=== PATIENT | female | born 1995 | race Caucasian/White ===

== ENCOUNTER → 2016-12-23 | Outpatient (CLI) | payer BC | LOC: MOB LAB 14:28 | PROVIDERS: ATTEND Nurse Practitioner Family | DX: N89.8 Other specified noninflammatory disorders of vagina (principal) | CPT/HCPCS: 87480; 87510; 87660 ==

== ENCOUNTER → 2017-03-03 | Outpatient (CLI) | payer BC ==
--- NOTE | 2017-03-03 15:20 | DI ---
History: Second trimester ultrasound examination of the uterus. Gestational age by last mens trual period is 13 weeks 5 days. Comparison: None Findings: There is a single live intrauterine fetus with heart rate of 150 beats per minute. presentation is transverse There is an anterior placenta. Amniotic fluid volume is normal the largest pocket measuring 2.6 cm. Gestational age by BPD is 14 weeks 3 days, by HC 14 weeks 5 days, by a.c. 14 weeks one day, and by fe moral length 13 weeks 6 days. Composite gestational age is 14 weeks 2 days. Average ultrasound age is 14 weeks 2 days NATALIO based on sonographic measurements is August 30, 2017 Estimated weight is 86 g, or 3 ounces Impression Single live intrauterine fetus with a an average ultrasound age of 14 weeks 2 days, estimated w eight of 86 g, and an estimated NATALIO of August 30, 2017
== END ==
LOC: US 10:10
PROVIDERS: ATTEND Obstetrics & Gynecology
DX: Z36 Encounter for antenatal screening of mother (principal)
CPT/HCPCS: 76801

== ENCOUNTER → 2017-03-03 | Outpatient (CLI) | payer BC | LOC: MOB LAB 09:59 | PROVIDERS: ATTEND Obstetrics & Gynecology | DX: Z36 Encounter for antenatal screening of mother (principal) | CPT/HCPCS: 87491; 87591 ==

== ENCOUNTER 2017-08-23 15:48 | Inpatient (IN) ==
[2017-08-23] MEDS ORDERED: BUTORPHANOL TARTRATE 2 MG/1 ML VIAL IVP PRN (16:12)
[2017-08-23] MEDS ORDERED: CefOXitin Inj 2 GM in Sodium Chloride 0.9% 100 ML IV PRN (16:12)
[2017-08-23] MEDS ORDERED: Phenylephrine Inj 50 MCG in Normal Saline Flush 0.5 ML IVP PRN (16:12)
[2017-08-23] MEDS ORDERED: MISOPROSTOL 200 MCG TABLET RECTAL PRN (16:12)
[2017-08-23] MEDS ORDERED: diphenhydrAMINE 50 MG/1 ML VIAL IVP PRN (16:12)
[2017-08-23] MEDS ORDERED: ONDANSETRON 4 MG/2 ML VIAL IVP PRN (16:12)
[2017-08-23] MEDS ORDERED: TERBUTALINE SULFATE 1 MG/1 ML SDV SUBCUT PRN (16:12)
[2017-08-23] MEDS ORDERED: ePHEDrine Inj 5 MG in Normal Saline Flush 1 ML IVP PRN (16:12)
[2017-08-23] MEDS ORDERED: NORMAL SALINE 10 ML SYRINGE FLUSH IVP PRN (16:12)
[2017-08-23] MEDS ORDERED: Lidocaine 1% 10 MG/ML - 20 ML VIAL SUBCUT PRN (16:12)
[2017-08-23] MEDS ORDERED: Naloxone Inj 0.01 MG in Normal Saline Flush 1 ML IVP PRN (16:12)
[2017-08-23] MEDS ORDERED: METHYLERGONOVINE MALEATE 0.2 MG/1 ML VIAL IM PRN (16:12)
[2017-08-23] MEDS ORDERED: CITRIC ACID/SODIUM CITRATE 30 ML CUP PO PRN (16:12)
[2017-08-23] MEDS ORDERED: Nalbuphine Inj 20 MG/ML Ampule IVP PRN (16:12)
[2017-08-23] MEDS ORDERED: LIDOCAINE W/ SODIUM BICARB 0.5 ML SYR SUBD PRN (16:12)
[2017-08-23] MEDS ORDERED: fentaNYL Inj 100 MCG/2 ML VIAL IV PRN (16:12)
[2017-08-23] MEDS ORDERED: OXYTOCIN 10 UNIT/1 ML IM PRN (16:12)
[2017-08-23] MEDS ORDERED: Famotidine Inj 20 MG in Normal Saline Flush 10 ML IVP PRN ×4 (16:12)
[2017-08-23] MEDS ORDERED: NALOXONE 0.4 MG/1 ML VIAL IVP PRN (16:12)
[2017-08-23] MEDS ORDERED: Carboprost Inj 250 MCG/ML AMP IM PRN (16:12)
[2017-08-23] MEDS ORDERED: Metoclopramide Inj 10 MG/2 ML VIAL IV PRN (16:12)
[2017-08-23] MEDS ORDERED: LIDOCAINE HCL 2 % 10 ML JELLY URO-JECT TOPICAL PRN (16:12)
[2017-08-23] MEDS ORDERED: CALCIUM CARBONATE 500 MG (TUMS) CHEWABLE TABLET PO PRN (16:12)
[2017-08-23] MEDS ORDERED: Oxytocin 20 Units + LR 20 UNIT/1,000 ML BAG IV SCH (16:15)
[2017-08-23] MEDS: Lactated Ringers-OB Dept 1,000 ML PRIMARY IV SCH (16:25)
--- NOTE | 2017-08-23 16:25 | OB.PROGRES ---
Interval History: The patient is a 22-year-old at 39 weeks gestation today who was admitted for induction of labor secondary to unstable lie. The baby has been breech or transverse 2 different times in the past several weeks. Last week she went to labor and delivery for external cephalic version but was found to be head down. The patient still believes that the baby's head down currently. She has been doing pelvic tilts. The other issue this is that she was found to be GBS positive. Past medical history benign, no history of HSV. Past surgical history none Allergies to morphine No tobacco, no alcohol, no drugs in . OB history the vaginal delivery of a 6 lbs. 9 oz. girl about 4 years ago. Small vaginal laceration. Objective - Cervical Exam Cervical Exam: 2/50/-2 cephalic. Cervix is mid position and not as posterior as it was earlier last week. Cervix is soft. Membranes were not swept since patient had not received IV antibiotics yet. is GBS positive. Heart Rate Interpretation Category: Category I - Additional Details Additional Details: Limited transabdominal ultrasound shows the fetus to be in the cephalic presentation with the baby's back to the patient's right side. Assessment and Plan - Assessment / Plan Additional Assessment/Plan Details: Assessment: IUP 39 week gestation Unstable lie Group B strep positive Plan: Admit IV penicillin 5 million units initially then 2.5 million units every 4 hours Cervical ripening with Cytotec unless patient is marco and then Pitocin augmentation for cervical ripening Continue care. Close observation.
[2017-08-23 16:33] LABS: Hematocrit [HCT] 32.1 % (37.0-47.0); Hemoglobin [HGB] 10.8 g/dL (12.0-16.0); MEAN CORPUSCULAR HEMOGLOBIN 27.3 PG (27-31); MEAN CORPUSCULAR HGB CONC 33.6 g/dL (33-37); MEAN CORPUSCULAR VOLUME 81.3 FL (81-99); MEAN PLATELET VOLUME 10.1 FL (7.4-12.2); RED BLOOD COUNT 3.95 10^6/uL (4.20-5.40)
[2017-08-23] MEDS ORDERED: Misoprostol Tab 100 MCG TAB VAGINAL PRN (20:51)
[2017-08-23] MEDS ORDERED: Misoprostol Tab 100 MCG TAB ONE (20:56)
--- NOTE | 2017-08-23 22:13 | OB.PROGRES ---
Interval History: Patient received her Cytotec around 2100 hrs. She has felt some cramping. Currently, she has to void. Objective - Cervical Exam Cervical Exam: Deferred currently [place]: Irregular contractions Heart Rate Interpretation Category: Category I - Labs CBC and BMP: 08/23/17 16:12 - Vital Signs Last Taken Vital Signs: Vital Signs - Last Taken Temperature 98.4 F 08/23/17 22:05 Pulse Rate 88 08/23/17 21:00 Respiratory Rate 14 08/23/17 22:05 Blood Pressure 115/74 08/23/17 16:31 Pulse Ox 100 08/23/17 22:06 Assessment and Plan - Assessment / Plan Additional Assessment/Plan Details: Assessment: IUP 39 weeks gestation with unstable lie currently cephalic GBS positive Patient received 1 dose of Cytotec and has received 2 doses of IV penicillin Of note, in the patient's past surgical history 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 I did not mention that in my history. I will alert pediatrics to this. Plan: Continue to observe closely Penicillin IV every 4 hours If contractions completely resolved by 0 300 then I would have the nurse place another Cytotec at that time. If the contractions are continuing then most likely around 0 500 to 0600 hrs. I would augment with Pitocin unless the patient is in active labor with active cervical change. The patient and I discussed this plan and she agrees.
[2017-08-23] MEDS ORDERED: PENICILLIN G POTASSIUM 5,000,000 UNIT SDV IV ONE (23:48)
[2017-08-24] MEDS: Lactated Ringers-OB Dept 1,000 ML PRIMARY IV SCH ×5 (00:03→19:19)
--- NOTE | 2017-08-24 07:39 | OB.PROGRES ---
Interval History: The patient states that she can feel the contractions with the Pitocin that was just started. She would like an epidural at some time. Objective - Cervical Exam Cervical Exam: 3/50/-2 and cephalic and ballotable. Membranes swept gently since patient has received several doses of IV penicillin for GBS positive [place]: Contractions every 2-4. Pitocin will be increased from 1 milliunit to 2- 3 milliunits Heart Rate Interpretation Category: Category I - Labs CBC and BMP: 08/23/17 16:12 - Vital Signs Last Taken Vital Signs: Vital Signs - Last Taken Temperature 98.3 F 08/24/17 07:00 Pulse Rate 87 08/24/17 07:00 Respiratory Rate 18 08/24/17 07:00 Blood Pressure 112/70 08/24/17 07:00 Pulse Ox 98 08/24/17 07:00 Assessment and Plan - Assessment / Plan Additional Assessment/Plan Details: Assessment: IUP 39-07/26 week with some cervical change with Cytotec. GBS positive and patient has received several doses of IV penicillin The patient was started on 1 milliunit of Pitocin and she is having some discomfort with contractions. Plan: I will speak with anesthesia about an epidural to determine their schedule for this morning Continue to increase Pitocin Look for cervical ripening. Consider IV fentanyl for pain initially if the patient would like to try this.
[2017-08-24 09:49] LABS: AMPHETAMINE SCREEN NEGATIVE (NEG); CANNABINOID SCREEN,URINE NEGATIVE (NEG); COCAINE SCREEN NEGATIVE (NEG); METHADONE URINE SCREEN NEGATIVE (NEG); METHAMPHETAMINES SCREEN,URINE NEGATIVE (NEG); OPIATE SCREEN,URINE NEGATIVE (NEG); URINE SAMPLE TYPE VOIDED SPECIMEN; URINE SPECIFIC GRAVITY - MAN 1.015
[2017-08-24] MEDS ORDERED: Fent/Bupiv 2mcg/0.0625% Epid 250 ML ONE (11:14)
--- NOTE | 2017-08-24 11:44 | CRNA.PROCE ---
Central Neuraxis Block Placemt - - Type of Block: Epidural Reason for Block: Analgesia Moniters Used During Block: SPO2, NIBP Positioning: Sitting Skin Prep Used: ChloroPrep Draped: Yes Skin Infiltration - Enter Amount Used in Comment Field: 1% Xylocaine (mL): Yes ( skin wheal) Spinal Needle Used: 18 Hustead 80 mm Local Anesthetic - Enter Amount Used in Comment Field: 1.5 % Xylocaine with Epinephrine 1:200,000 (mL): Yes (5ml) Number of Centimeters Catheter Threaded: 4 Anesthesia Time - Other Weight: 94.801 kg Height: 5 ft 7 in Body Mass Index (BMI): 32.7
[2017-08-24] MEDS ORDERED: fentaNYL 2 MCG/BUPIVACAINE 0.0625%/NS 0.9% 250 ML BAG EPIDURAL SCH (11:45)
--- NOTE | 2017-08-24 11:46 | CRNA.PROGR ---
Anesthesia Time - - Start date: 08/24/17 - Procedure/Recovery Time Anesthesia : Time In: 11:22 - Other Weight: 94.801 kg Height: 5 ft 7 in Body Mass Index (BMI): 32.7 Physical Status: P2 Obstetrics: Planned vaginal delivery w/ neuraxial labor anesthesia/analog
--- NOTE | 2017-08-24 13:50 | OB.PROGRES ---
Interval History: The patient is comfortable after she received her epidural. The patient can feel pressure with contractions but no pain. She does not have pelvic pressure currently. Objective - Cervical Exam Cervical Exam: 4-5/60/-2 cephalic. However, I did palpate fingers which were below the head with the exam initially. Membranes are intact. I gently tried to manipulate the fingers to move the fingers and hand more caudal. [place]: Contractions every 2-3 minutes on 6 milliunits of Pitocin Heart Rate Interpretation Category: Category I - Labs CBC and BMP: 08/23/17 16:12 - Vital Signs Last Taken Vital Signs: Vital Signs - Last Taken Temperature 98.3 F 08/24/17 07:00 Pulse Rate 98 08/24/17 12:00 Respiratory Rate 22 08/24/17 12:00 Blood Pressure 133/62 08/24/17 12:00 Pulse Ox 100 08/24/17 12:00 Assessment and Plan - Assessment / Plan Additional Assessment/Plan Details: Assessment: IUP 39-1/7 week with an induction of labor for unstable lie for intermittent breach presentation. Currently, baby is in the cephalic presentation but the hand or hands could be palpated on this exam which is new. With gentle manipulation, I tried to move the hands out-of-the- way but was unsuccessful. Group B strep positive Plan: I will have the patient sit in a high Fowlers presentation. I will recheck the patient in an hour. If I can AROM the patient with the fingers and hand out of the way, perhaps the head will descend into the canal. Continue IV penicillin Continue IV Pitocin 6 milliunits. This will not be increased currently. If there is SROM, the nurse will check immediately to determine presenting parts. Nurse expressed understanding. Patient expressed understanding. We did briefly discuss section and the risks, benefits, alternatives and indication if there is a malpresentation.
--- NOTE | 2017-08-24 16:11 | OB.PROGRES ---
Interval History: The patient is comfortable. I went to the patient's room an hour after the last note with the patient was sleeping soundly. The patient feels better now that she got a nap in. Objective - Cervical Exam Cervical Exam: 5-6/60/-2. Cephalic presentation. I could not palpate a compound presentation i.e. the baby's hand Heart Rate Interpretation Category: Category I - Labs CBC and BMP: 08/23/17 16:12 - Vital Signs Last Taken Vital Signs: Vital Signs - Last Taken Temperature 98.0 F 08/24/17 14:00 Pulse Rate 110 H 08/24/17 14:00 Respiratory Rate 20 08/24/17 14:00 Blood Pressure 110/64 08/24/17 14:00 Pulse Ox 100 08/24/17 14:00 Assessment and Plan - Assessment / Plan Additional Assessment/Plan Details: Assessment: IUP 39 and one sevenths week with induction of labor for unstable lie. Previous compound presentation palpated but not currently. However, I could not perform AROM secondary to another patient in labor and delivery in the second stage of labor. Plan: After the other patient delivers, I will have the OR crew available and I will check the patient. If I cannot palpate a compound presentation, AROM will be completed. Patient expressed understanding that there is a possibility of a section for prolapsed cord or a prolapsed arm. Currently, continue Pitocin at 6 milliunits.
--- NOTE | 2017-08-24 17:00 | OB.PROGRES ---
Interval History: The patient was fairly comfortable. Anesthesia adjusted her epidural somewhat. The patient was ready for AROM. The patient stated that she understood the possibility, although low, of a prolapsed cord or prolapsed arm with AROM and the necessity to have a . Objective - Cervical Exam Cervical Exam: 560/-2. A compound presentation was not palpated. AROM with amniotomy hook was completed with the operating room staff standing by. Copious amounts of clear fluid. No palpated prolapsed cord or compound presentation. Copious amounts of clear fluid continued. [place]: the Pitocin was decreased from 6 milliunits to 3 milliunits after AROM. Heart Rate: There were some variable decelerations and decelerations to the low 100s after AROM. There is also a good acceleration with AROM. Heart Rate Interpretation Category: Category II - Labs CBC and BMP: 08/23/17 16:12 - Vital Signs Last Taken Vital Signs: Vital Signs - Last Taken Temperature 98.0 F 08/24/17 14:00 Pulse Rate 110 H 08/24/17 14:00 Respiratory Rate 20 08/24/17 14:00 Blood Pressure 110/64 08/24/17 14:00 Pulse Ox 100 08/24/17 14:00 Assessment and Plan - Assessment / Plan Additional Assessment/Plan Details: Assessment: IUP 39-1/7 week with AROM with clear fluid. Cephalic presentation. Cervix was still 5 cm dilated and 60% effaced. -2 to - 1 station. Plan: Observe closely the heart rate for decelerations. I did discuss with the patient that it is still possible to have a compound presentation and the second stage of labor. Continue penicillin for GBS
--- NOTE | 2017-08-24 17:19 | OB.PROGRES ---
Interval History: The patient was feeling some pressure and pain. She also thought she felt something moving in her pelvis. Objective - Cervical Exam Cervical Exam: 5-6/75/-1 station. The patient's cervix is very soft and also with stretches well. Compound presentation was not palpated. Heart Rate Interpretation Category: Category II (Occasional variable deceleration. Positive acceleration with scalp stimulation) - Labs CBC and BMP: 08/23/17 16:12 - Vital Signs Last Taken Vital Signs: Vital Signs - Last Taken Temperature 98.0 F 08/24/17 14:00 Pulse Rate 110 H 08/24/17 14:00 Respiratory Rate 20 08/24/17 14:00 Blood Pressure 110/64 08/24/17 14:00 Pulse Ox 100 08/24/17 14:00 Assessment and Plan - Assessment / Plan Additional Assessment/Plan Details: Assessment: IUP 39 and one sevenths weeks with some cervical change and some descent of the baby's head. Patient has some pain and discomfort with her epidural in place. Plan: Anesthesia will attempt to dose the epidural to determine if this helps her discomfort. Continue to observe closely.
--- NOTE | 2017-08-24 19:10 | OB.DEL.SUM ---
Delivery Note Delivery Summary: Pt is a 22 yo G2 now P2 at 39 1/7 weeks who was brought in by her primary MD, Dr. Harper, for cervical ripening secondary to unstable lie. She was GBS+ and received multiple dose of penicillin. She received 1 dose of cytotec last noc and then pitocin this morning. An epidural was placed for pain control. She underwent amniotomy at 1647 with a copious amount of amniotic fluid. She progressed to c/c/+2 over an hour and a half and had a strong urge to push. Dr. Harper was called to the facility at 1833. In the time that it took him to return to the hospital, the pt began involuntarily pushing. I was in house and was asked to attend the delivery. She delivered a viable female over an intact perineum at 1846. The baby's nose and mouth were suctioned with a bulb suction and the cord was doubly clamped by myself and cut by a friend of the pt. Baby was placed on mom's chest. Cord blood and cord gases were obtained. The placenta delivered spontaneously and intact, with a 3 vessel cord, at 1849. 20 mU of pitocin were infused with good hemostasis. The vagina and perineum were examined and no lacerations were noted. EBL 200 cc. Apgars were 9 at 1 minute and 10 at 5 minutes. Terminal meconium was noted. Baby's weight is pending at this time. Dr. Harper will care for the pt in the period.
[2017-08-24] MEDS ORDERED: Oxytocin 20 Units + LR 20 UNIT/1,000 ML BAG IV SCH (19:35)
[2017-08-24] MEDS ORDERED: diphenhydrAMINE 50 MG/1 ML VIAL IVP PRN (19:35)
[2017-08-24] MEDS ORDERED: ONDANSETRON 4 MG/2 ML VIAL IVP PRN (19:35)
[2017-08-24] MEDS ORDERED: BENZOCAINE/MENTHOL SPRAY 56 GM BOTTLE TOPICAL PRN (19:35)
[2017-08-24] MEDS ORDERED: NORMAL SALINE 10 ML SYRINGE FLUSH IVP PRN (19:35)
[2017-08-24] MEDS ORDERED: LANOLIN HPA 40 GM TUBE TOPICAL PRN (19:35)
[2017-08-24] MEDS ORDERED: diphenhydrAMINE 25 MG CAPSULE PO PRN (19:35)
[2017-08-24] MEDS ORDERED: DIPH,PERTUSS,TET(ADACEL) VAC/PF 0.5 ML (Tdap) IM ONE (19:35)
[2017-08-24] MEDS ORDERED: Nalbuphine Inj 20 MG/ML Ampule IVP PRN (19:35)
[2017-08-24] MEDS ORDERED: GLYCERIN/WITCH HAZEL 1 BOX TOPICAL PRN (19:35)
[2017-08-24] MEDS ORDERED: Ondansetron ODT Tab 4 MG TAB PO PRN (19:35)
[2017-08-24] MEDS ORDERED: CALCIUM CARBONATE 500 MG (TUMS) CHEWABLE TABLET PO PRN (19:35)
[2017-08-24] MEDS ORDERED: LIDOCAINE HCL 2 % 10 ML JELLY URO-JECT TOPICAL PRN (19:35)
[2017-08-24] MEDS ORDERED: ACETAMINOPHEN 325 MG TABLET PO PRN (19:35)
[2017-08-24] MEDS ORDERED: HYDROcodone-APAP 5 MG -325 MG TABLET PO PRN (19:35)
[2017-08-24] MEDS: DOCUSATE 100 MG CAPSULE PO SCH (21:38)
[2017-08-24] MEDS: IBUPROFEN 800 MG TABLET PO PRN (21:39)
[2017-08-25] MEDS: IBUPROFEN 800 MG TABLET PO PRN ×2 (05:22→19:08)
[2017-08-25 05:34] VITALS: RESP 16
[2017-08-25 08:13] LABS: Hemoglobin [HGB] 9.4 g/dL (12.0-16.0); MEAN CORPUSCULAR HEMOGLOBIN 26.1 PG (27-31); MEAN CORPUSCULAR HGB CONC 31.3 g/dL (33-37); MEAN CORPUSCULAR VOLUME 83.3 FL (81-99); MEAN PLATELET VOLUME 9.5 FL (7.4-12.2); RED BLOOD COUNT 3.6 10^6/uL (4.20-5.40)
[2017-08-25] MEDS: DOCUSATE 100 MG CAPSULE PO SCH (09:32)
[2017-08-25] MEDS: Prenatal Multivitamin Tab 1 TAB TAB PO SCH (09:32)
--- NOTE | 2017-08-25 10:19 | CRNA.PROGR ---
Anesthesia Note - Progress Notes Anesthesia Progress Note: Post Labor Epidural Note Pt is sitting up in bed holding her . She has been up to restroom and ambulating. Denies any residual effects of the epidural. She tolerated the epidural well and was pleased with the level of analgesia she received. Current VS are stable. Vital Signs - Last Taken Temperature 98 F 08/25/17 05:00 Pulse Rate 79 08/25/17 05:00 Respiratory Rate 16 08/25/17 05:00 Blood Pressure 103/57 08/25/17 05:00 Pulse Ox 99 08/25/17 05:00
--- NOTE | 2017-08-25 11:27 | OB.PROGRES ---
Subjective Post Op Day: 1 Pain Management: PO Samuels Catheter: No Flatus: Yes Diet: Regular Feeding Method: Exculsively Ambulating: Yes Concerns / Additional Information: The patient states that she is feeling well. Breast-feeding. She would like to go home tomorrow morning. She delivered last night. Bleeding is moderate. No large clots. Objective - General General Appearance: POSITIVE: No Acute Distress, Cooperative - Cardiovacular Cardiovascular Exam: POSITIVE: RRR Extremities: Negative Kathrine's - Bilaterally - Respiratory Respiratory Exam: POSITIVE: Clear to Auscultation - Bilaterally - Abdomen Bowel Sounds: Present - Fundus/Lochia/Perineum Uterus Consistency: Firm With Massage (With massage) Uterus Position: POSITIVE: Below Umbilicus (Fundus is slightly to the patient's left) Assesstment / Plan Assessment / Plan: Assessment: day #1 status post spontaneous vaginal delivery- precipitous H&H is 9.4 and 30. The patient is doing well. Plan: Continue care today. Probable discharge tomorrow Discharge medications Will be ibuprofen, Colace, ferrous sulfate
[2017-08-26] MEDS: IBUPROFEN 800 MG TABLET PO PRN (02:48)
[2017-08-26] MEDS: Prenatal Multivitamin Tab 1 TAB TAB PO SCH (08:10)
[2017-08-26] MEDS: DOCUSATE 100 MG CAPSULE PO SCH (08:10)
[2017-08-26 08:15] VITALS: BP 113/71; TEMP 97.8; O2SAT 98
--- NOTE | 2017-08-26 10:08 | OB.PROGRES ---
Subjective Post Op Day: 2 Pain Management: PO Samuels Catheter: No Flatus: Yes Diet: Regular Feeding Method: Exculsively Ambulating: Yes Concerns / Additional Information: Patient states she is feeling well. She would like to go home. Breast-feeding is okay. Objective - General General Appearance: POSITIVE: No Acute Distress, Cooperative - Cardiovacular Cardiovascular Exam: POSITIVE: RRR Extremities: Negative Kathrine's - Bilaterally - Respiratory Respiratory Exam: POSITIVE: Clear to Auscultation - Bilaterally - Fundus/Lochia/Perineum Other Exam Details: Abdomen soft and nontender without guarding or rebound. U - 1 fundus off to the patient's left side. Firm. Assesstment / Plan Assessment / Plan: Assessment: day #2 doing well. Blood pressures good. Mild anemia. Patient desires to go home. Plan: Discharge home Please see discharge plan
== END 2017-08-26 12:15 | disposition home or self-care (01) | DRG 775 ==
LOC: OBOP 15:48 → OBIP 15:59
PROVIDERS: ADMIT Obstetrics & Gynecology; ATTEND Obstetrics & Gynecology